=== PATIENT | female | born 1995 | race Two or more races ===

== ENCOUNTER 2024-11-06 21:13 | Emergency (ER) | payer BC, SELFPAY ==
[2024-11-06] VITALS (8 sets, daily range): BP systolic 123–142; BP diastolic 76–85; PULSE 129–147; RESP 19–32; TEMP 37.1–37.2; O2SAT 99; BMI 25.6
--- NOTE | 2024-11-06 21:27 | PD.EDCHEST ---
ED Chest Pain RME/HPI General Chief Complaint: Chest Pain Stated Complaint: CHEST PAIN Time Seen by Provider: 11/06/24 21:28 Arrival date/time: 11/06/24 21:13 RME / HPI RME / HPI narrative: See [facility] for Dr. Kyle's HPI documentation. Related Data Previous Rx's ?Medication ?Instructions ?Recorded azithromycin 500 mg tablet 500 mg PO QDAY 3 days #3 tabs 11/07/24 (Zithromax TRI-THOM) magnesium oxide 400 mg PO BID #60 tabs 11/07/24 metoprolol succinate 50 mg 50 mg PO BID #60 tabs 11/07/24 tablet,extended release 24 hr Allergies Allergy/AdvReac Type Severity Reaction Status Date / Time tramadol Allergy Verified 11/07/24 01:39 Review of Systems Review of Systems Systems Reviewed: All systems reviewed, normal except as documented Past Medical History Social History SMOKING STATUS: Never smoker ED Exam Narrative Physical exam: See [facility] for Dr. Kyle's physical exam documentation. Course Course Course Narrative: CXR is ordered for determining the etiology of chest pain. Quality Measures none Orders Category Date Time Status Bedside COVID-19 Antigen Test NOW Care 11/06/24 21:29 Completed Bedside Influenza A&B Antigen Test NOW Care 11/06/24 21:29 Completed EKG (ED ONLY) *Do not use* NOW Care 11/06/24 21:23 Completed Saline [Insert IV] NOW Care 11/06/24 21:29 Completed Straight [In and Out Catheter] X1 Care 11/06/24 21:29 Completed EKG (ED Only) Stat Exams 11/06/24 21:23 Ordered XR chest 1V portable Stat Exams 11/06/24 21:30 Completed Alcohol, Blood Medical Stat Lab 11/06/24 21:37 Completed Amylase Stat Lab 11/06/24 21:37 Completed BNP [B-Type Natriuretic Peptide] Stat Lab 11/06/24 21:37 Completed Bilirubin,Direct Stat Lab 11/06/24 21:37 Completed CBC Stat Lab 11/06/24 21:37 Completed CMP [Comprehensive Metabolic Panel] Stat Lab 11/06/24 21:37 Completed D-Dimer Stat Lab 11/06/24 21:37 Completed Drug Screen,Urine Stat Lab 11/06/24 22:24 Completed HCG,Qualitative Serum Stat Lab 11/06/24 21:37 Completed Lipase Stat Lab 11/06/24 21:37 Completed Magnesium Stat Lab 11/06/24 21:37 Completed PT [Prothrombin Time with INR] Stat Lab 11/06/24 21:37 Completed PTT [Partial Thromboplastin Time] Stat Lab 11/06/24 21:37 Completed TSH [Thyroid Stimulating Hormone] Stat Lab 11/06/24 21:37 Completed Troponin I Stat Lab 11/06/24 21:37 Completed UA, C/S IF [Urinalysis, C/S if Indicated] Stat Lab 11/06/24 22:24 Completed ALPRazoLAM [Xanax] Med 11/07/24 02:37 Discontinued 1 mg PO X1 ONE Azithromycin Po [Zithromax PO] Med 11/07/24 01:38 Discontinued 500 mg PO X1 ONE Diazepam Inj [Valium Inj] Med 11/06/24 21:29 Discontinued 10 mg IVP X1 ONE Diazepam Inj [Valium Inj] Med 11/06/24 23:28 Discontinued 10 mg IVP X1 ONE KCL 10% Liq UDC 15 ML Med 11/06/24 23:54 Discontinued 40 meq PO X1 ONE KCL 10% Liq UDC 15 ML Med 11/06/24 23:56 Discontinued 40 meq PO X1 ONE Magnesium Sulfate 2 GM Ivpb [Magnesium Sulfate Ivpb] Med 11/06/24 23:57 Discontinued 2 gm in 50 ml IV X1 Metoprolol Tartrate Inj [Lopressor Inj] Med 11/06/24 21:29 Discontinued 5 mg IVP X1 ONE Metoprolol Tartrate Inj [Lopressor Inj] Med 11/06/24 23:28 Discontinued 5 mg IVP X1 ONE Metoprolol Tartrate [Lopressor] Med 11/07/24 01:33 Discontinued 50 mg PO X1 ONE Ondansetron Inj [Zofran Inj] Med 11/06/24 21:29 Discontinued 4 mg IVP X1 ONE Potassium Chloride [K-Dur] Med 11/07/24 00:31 Discontinued 40 meq PO X1 ONE Potassium Chloride [K-Dur] Med 11/07/24 00:38 Discontinued 40 meq PO X1 ONE Sodium Chloride 0.9% 1000 ml [Ns] 1,000 ml Med 11/06/24 21:29 Discontinued IV 999 mls/hr Sodium Chloride 0.9% 1000 ml [Ns] 1,000 ml Med 11/06/24 21:30 Discontinued IV 999 mls/hr Sodium Chloride 0.9% 1000 ml [Ns] 1,000 ml Med 11/06/24 23:28 Discontinued IV 999 mls/hr Thiamine Inj [Vitamin B-1 Inj] Med 11/06/24 21:29 Discontinued 100 mg IVP X1 ONE Vital Signs Vital signs: Vital Signs Temperature 99.0 F 11/06/24 21:29 Pulse Rate 147 H 11/06/24 21:29 Respiratory Rate 22 H 11/06/24 21:29 Blood Pressure 133/76 H 11/06/24 21:29 Pulse Oximetry (%) 99 11/06/24 21:29 Oxygen Delivery Method Room Air 11/06/24 21:29 Chest Pain MDM Narrative MDM Narrative:: This section includes all my notes and documentations, including HPI, PE, and ED course. Alek Kyle MD HPI: 29yo female BIBA from home here with chest pain. Patient was eating dinner when she started having chest pain, palpitations, and felt hot. She did have a marijuana edible and drank beer prior to having dinner. No abdominal pain. EMS administered 2 shocks (100 and 150 joules) and 3 rounds of Adenosine en route (6mg, 12mg, 12mg). Patient takes [place] daily. She also reports binging on alcohol, 2-3 days per week. And she had 3 energy drinks [employer]. No other complaints reported. ROS: All negative except as documented in HPI. Physical Exam: General: Alert and oriented. Appears severely anxious. Eyes: Conjunctivae and lids clear. PERRL. EOMI. ENT: No nasal congestion. Neck: Supple. Heart: Tachycardic, regular rhythm. Lungs: No respiratory distress. Good air movement. No rhonchi, wheezing, rales. Abdomen: Soft and nontender. Normal bowel sounds. No distension. No rebound or guarding. Back: No CVA tenderness. Skin: Warm and dry. Neuro: Alert and oriented X 3. CN 2-12 grossly normal. No peripheral motor deficits. I reviewed EMS notes. I reviewed all diagnostic test results. My interpretation of the EKG is sinus tachycardia with nonspecific ST-T changes. My interpretation of the chest x-ray is infiltrates. Blood tests are remarkable for K 3.0, Mg 1.5. UA unremarkable. UDS positive for marijuana and opiates. At this point, diagnoses include: Tachycardia Hypertension Alcohol use Hypokalemia Hypomagnesemia Pneumonia Treatment here included: Valium IV fluid Metoprolol Zofran Thiamine Oral KCl Magnesium Azithromycin Significant improvement noted. Recommended outpatient management. Based on my best medical judgment, made decision no further evaluation or treatment indicated at this time. Patient understands and agrees to the discharge instructions customized and printed, see below. Discharge instructions from Dr. Kyle: 1. After extensive evaluation, there is no life-threatening condition. Such as heart attack or pulmonary embolism (blood clots in your lungs) or pneumothorax (collapsed lung). 2. Your symptoms were due to a combination of 3 energy drinks, alcohol, marijuana use, low potassium, low magnesium, mild pneumonia, and underlying high BP and fast heart rate. 3. Take metoprolol as prescribed. You will live longer with lower BP and slower heart rate. 4. Take Zithromax for your very mild pneumonia. 5. For low magnesium, take magnesium pills as prescribed and increase food rich in magnesium. Such as green and leafy vegetables and almonds and cashews and peanuts. 6. For low potassium, increased food rich in potassium, including banana daily. See attached handout about potassium rich food. 7. Avoid energy drinks and alcohol and marijuana. 8.. See a private doctor on 11/10/2024 for recheck and further care. Ask to review all test results and official radiology reports, to make sure you receive all necessary follow-ups and monitoring, including repeat potassium and magnesium levels. To make sure there is no serious underlying heart condition, ask to help you get more tests for your heart that cannot be done here in the ER. Such as Holter Monitor (cardiac monitoring at home from a day to even a month), heart stress test (on treadmill or with medication), echocardiogram (imaging of your heart structures), heart catherization (checking for blockages in your heart arteries), and a referral to see a Ethylbenzene Cracking Supervisor. Ask for help quitting energy drinks and marijuana and alcohol. Ask for help until you are completely better. 9. Seek immediate medical care with worsening or with any concerns. Alek Kyle MD Patient data External records reviewed:: [facility] previous records (Per chart review, patient has no previous ED visits or admissions to this facility.) and EMS form Clinical information provided by:: patient and EMS Social determinants that could affect healthcare access:: substance use (marijuana and alcohol use) Patient has the following chronic illnesses:: none How is presenting disease/condition affected by chronic disease/condition?: no chronic disease Evaluation data The following diagnostics were reviewed and interpreted by me:: lab results, radiology exam(s) and EKG tracing(s) (My interpretation of the EKG is: Sinus tachycardia (149 bpm) with nonspecific ST-T changes. Alek Kyle MD) Lab and/or radiology exams considered but not ordered:: none Interpretation Summary: I reviewed all diagnostic test results. My interpretation of the EKG is sinus tachycardia with nonspecific ST-T changes. My interpretation of the chest x-ray is infiltrates. Blood tests are remarkable for K 3.0, Mg 1.5. UA unremarkable. UDS positive for marijuana and opiates. Medications / Prescriptions Medications or Prescriptions considered but not ordered:: none Medication administrations:: Medication Administration History Discontinued Medications Alprazolam (Alprazolam 0.25 Mg Tablet) 1 mg PO X1 ONE Stop: 11/07/24 02:38 Last Admin: 11/07/24 02:56 Dose: 1 mg Documented By: RANGEL Azithromycin (Azithromycin 250 Mg Tablet) 500 mg PO X1 ONE Stop: 11/07/24 01:39 Last Admin: 11/07/24 02:33 Dose: 500 mg Documented By: RANGEL Diazepam (Diazepam Inj 5 Mg/Ml Vial 2 Ml) 10 mg IVP X1 ONE Stop: 11/06/24 21:30 Last Admin: 11/06/24 21:55 Dose: 10 mg Documented By: KIN Diazepam (Diazepam Inj 5 Mg/Ml Vial 2 Ml) 10 mg IVP X1 ONE Stop: 11/06/24 23:29 Last Admin: 11/06/24 23:41 Dose: 10 mg Documented By: RANGEL Sodium Chloride (Ns) 1,000 mls @ 999 mls/hr IV .Q1H1M ONE Stop: 11/06/24 22:29 Last Infusion: 11/06/24 23:08 Dose: Infused Documented By: Admin: 11/06/24 21:52 Dose: 999 mls/hr Documented By: KIN Sodium Chloride (Ns) 1,000 mls @ 999 mls/hr IV .Q1H1M ONE Stop: 11/06/24 22:30 Last Infusion: 11/06/24 23:08 Dose: Infused Documented By: Admin: 11/06/24 22:05 Dose: 999 mls/hr Documented By: RANGEL Sodium Chloride (Ns) 1,000 mls @ 999 mls/hr IV .Q1H1M ONE Stop: 11/07/24 00:28 Last Infusion: 11/07/24 00:40 Dose: Infused Documented By: Admin: 11/06/24 23:42 Dose: 999 mls/hr Documented By: RANGEL Magnesium Sulfate (Magnesium Sulfate Ivpb) 2 gm in 50 mls @ 25 mls/hr IV X1 ONE Stop: 11/07/24 01:56 Last Infusion: 11/07/24 03:07 Dose: Infused Documented By: Admin: 11/07/24 00:34 Dose: 25 mls/hr Documented By: KIN Metoprolol Tartrate (Metoprolol Tartrate Inj 1 Mg/Ml Amp 5 Ml) 5 mg IVP X1 ONE Stop: 11/06/24 21:30 Last Admin: 11/06/24 21:53 Dose: 5 mg Documented By: KIN Metoprolol Tartrate (Metoprolol Tartrate Inj 1 Mg/Ml Amp 5 Ml) 5 mg IVP X1 ONE Stop: 11/06/24 23:29 Last Admin: 11/06/24 23:41 Dose: 5 mg Documented By: RANGEL Metoprolol Tartrate (Metoprolol Tartrate 25 Mg Tablet) 50 mg PO X1 ONE Stop: 11/07/24 01:34 Last Admin: 11/07/24 01:38 Dose: 50 mg Documented By: KIN Ondansetron HCl (Ondansetron Inj 2 Mg/Ml Inj 2 Ml) 4 mg IVP X1 ONE; Protocol Stop: 11/06/24 21:30 Last Admin: 11/06/24 21:54 Dose: 4 mg Documented By: KIN Potassium Chloride (Potassium Chloride 10% 20 Meq/15 Ml Udc) 40 meq PO X1 ONE Stop: 11/06/24 23:55 Last Admin: 11/07/24 00:32 Dose: Not Given Documented By: KIN Non-Admin Reason: Cancelled by Provider Potassium Chloride (Potassium Chloride 10% 20 Meq/15 Ml Udc) 40 meq PO X1 ONE Stop: 11/06/24 23:57 Last Admin: 11/07/24 00:50 Dose: Not Given Documented By: KIN Non-Admin Reason: Cancelled by Provider Potassium Chloride (Potassium Chloride 20 Meq Tabcr) 40 meq PO X1 ONE Stop: 11/07/24 00:32 Last Admin: 11/07/24 00:44 Dose: 40 meq Documented By: KIN Potassium Chloride (Potassium Chloride 20 Meq Tabcr) 40 meq PO X1 ONE Stop: 11/07/24 00:39 Last Admin: 11/07/24 00:45 Dose: 40 meq Documented By: KIN Thiamine HCl (Thiamine Inj 100 Mg/Ml Vial 2 Ml) 100 mg IVP X1 ONE Stop: 11/06/24 21:30 Last Admin: 11/06/24 21:54 Dose: 100 mg Documented By: KIN Valium, IV fluid, Metoprolol, Zofran, Thiamine, Oral KCl, Magnesium, Azithromycin Consultations Consultation(s) initiated? (list below): No Diagnosis Chest Pain Differential Diagnosis: pneumothorax, stable angina, unstable angina pectoris, atypical chest pain, st elevation myocardial infarction and costochondritis Most likely diagnosis given after review of the tests above:: Tachycardia, Hypertension, Alcohol use, Hypokalemia, Hypomagnesemia, Pneumonia Admission Indicated Admission indicated?: not indicated Explain why admission is indicated or not indicated:: With significant improvement and no condition needing emergent intervention, there was no indication for admission. Admission Request Was there a request for admission?: No Disposition Plan Disposition Plan: Discharge Discharge Attestation Discharge Attestation: The patient and all family members were given an opportunity to ask questions and understood the discharge instructions. Discharge instructions specifically effects, indications for sooner follow up or return to the emergency department, and the expected course of current diagnosis. Patient condition: Stable Discharge Plan Plan Patient Disposition: HOME (Self Care) Prescriptions/Referrals Prescriptions/Med Rec: New metoprolol succinate 50 mg tablet extended release 24 hr 50 mg PO BID Qty: 60 0RF magnesium oxide 400 mg magnesium tablet 400 mg PO BID Qty: 60 0RF azithromycin [Zithromax TRI-THOM] 500 mg tablet 500 mg PO QDAY 3 Days Qty: 3 0RF Referrals: Abelardo Mobley MD [Primary Care Provider, Family Practice] - In 1 week Problem List Clinical Impression: Tachycardia, Hypertension, Alcohol use, Hypokalemia, Hypomagnesemia, Pneumonia Patient/Caregiver Discharge Instructions Discharge Activity: activity as tolerated Education Materials: Magnesium (Blood), ED Hypertension, New (Begin Treatment), ED Hypokalemia, ED Palpitations, ED Pneumonia (Adult), ED Potassium-Rich Foods, ED Alcohol Abuse Additional Instructions: Discharge instructions from Dr. Kyle: 1. After extensive evaluation, there is no life-threatening condition.? Such as heart attack or pulmonary embolism (blood clots in your lungs) or pneumothorax (collapsed lung). 2. Your symptoms were due to a combination of 3 energy drinks, alcohol, marijuana use, low potassium, low magnesium, mild pneumonia, and underlying high BP and fast heart rate. 3. Take metoprolol as prescribed. You will live longer with lower BP and slower heart rate. 4. Take Zithromax for your very mild pneumonia. 5. For low magnesium, take magnesium pills as prescribed and increase food rich in magnesium. Such as green and leafy vegetables and almonds and cashews and peanuts. 6. For low potassium, increased food rich in potassium, including banana daily. See attached handout about potassium rich food. 7. Avoid energy drinks and alcohol and marijuana. 8.. See a private doctor on 11/10/2024 for recheck and further care. Ask to review all test results and official radiology reports, to make sure you receive all necessary follow-ups and monitoring, including repeat potassium and magnesium levels. To make sure there is no serious underlying heart condition, ask to help you get more tests for your heart that cannot be done here in the ER.? Such as Holter Monitor (cardiac monitoring at home from a day to even a month), heart stress test (on treadmill or with medication), echocardiogram (imaging of your heart structures), heart catherization (checking for blockages in your heart arteries), and a referral to see a Ethylbenzene Cracking Supervisor. Ask for help quitting energy drinks and marijuana and alcohol. Ask for help until you are completely better. 9. Seek immediate medical care with worsening or with any concerns.?? Print Language: Cambodian Stand Alone Forms: [employer] Award Info., Work/School Release, Patient Portal Info Letter
--- NOTE | 2024-11-06 21:30 | XR_ITS ---
Examination: AP chest single view Technique one AP portable upright chest single view Date and time: November 06, 2024 2153 hrs. Indications: Shortness of breath today. Findings: Early pneumonia left base obscuring detail left hemidiaphragm Normal heart size Right lung clear Osseous structures are intact Impression: Early pneumonia left base
[2024-11-06] MEDS: SODIUM CHLORIDE 0.9% 1000 ML 1,000 ML 999 ML IV ×3 (21:52→23:42)
[2024-11-06] MEDS: METOPROLOL TARTRATE INJ 1 MG/ML AMP 5 ML 5 MG IVP ×2 (21:53→23:41)
[2024-11-06] MEDS: THIAMINE INJ 100 MG/ML VIAL 2 ML IVP (21:54)
[2024-11-06] MEDS: ONDANSETRON INJ 2 MG/ML INJ 2 ML 4 MG IVP (21:54)
[2024-11-06] MEDS: DIAZEPAM INJ 5 MG/ML VIAL 2 ML 10 MG IVP ×2 (21:55→23:41)
[2024-11-06 22:01] LABS: Basophils # (Auto) 0.0 Thou/mm3 (0.0-0.2); Basophils % (Auto) 0 % (0-2.5); Eosinophils # (Auto) 0.4 Thou/mm3 (0.0-0.5); Eosinophils % (Auto) 4 % (0-10); Hematocrit 39.3 % (36.0-46.0); Hemoglobin 14.1 g/dL (12.0-16.0); Immature Granulocytes Auto 0.03 Thou/mm3 (0.00-0.00); Lymphocytes # (Auto) 4.2 Thou/mm3 (1.0-4.8); Lymphocytes % (Auto) 42 % (10-50); Mean Corpuscular HGB Conc 35.9 g/dl (31.0-37.0); Mean Corpuscular Hemoglobin 31.5 pg (25.0-35.0); Mean Corpuscular Volume 88 fL (80-100); Monocytes # (Auto) 0.8 Thou/mm3 (0.0-0.8); Monocytes % (Auto) 8 % (0-12); Neutrophils # (Auto) 4.5 Thou/mm3 (1.8-7.7); Neutrophils % (Auto) 45 % (37-80); Nucleated Red Blood Cell # 0.00 Thou/mm3 (0.00-0.00); Nucleated Red Blood Cell % 0 /100 WBC (0); Platelet Count 300 Thou/mm3 (140-440); RDW Standard Deviation 43.8 fL (36.4-46.3); Red Blood Count 4.47 Miln/mm3 (4.00-5.20); White Blood Count 9.9 Thou/mm3 (3.6-11.0)
[2024-11-06 22:16] LABS: HCG,Qualitative Serum Negative
[2024-11-06 22:25] LABS: INR 1.0 (0.9-1.3); Partial Thromboplastin Time 25.6 Seconds (22.0-36.0); Prothrombin Time 10.8 Seconds (9.0-12.2)
[2024-11-06 22:29] LABS: D-Dimer < 250 ng/mL (<600)
[2024-11-06 22:33] LABS: B-Type Natriuretic Peptide < 20 pg/mL (0-100)
[2024-11-06 22:44] LABS: Collection Type, Urine Clean Catch
[2024-11-06 22:56] LABS: Bacteria,Urine Rare; Bilirubin,Urine Negative (Negative); Blood,Urine Negative (Negative); Clarity,Urine Clear (Clear/Hazy); Color,Urine Colorless (Lt Yel-Yel); Culture Indicated,Urine Not Indicated; Glucose, Urine Negative (Negative); Ketones,Urine Negative (Negative); Leukocyte Esterase,Urine Positive (Negative); Nitrite,Urine Negative (Negative); PH,Urine 6.5 (5.0-7.0); Protein,Urine Negative (Neg - Trace); RBC,Urine < 1 /hpf (0-3); Specific Gravity,Urine 1.006 (1.001-1.035); Squamous Epithelial Cell,Urine 1 /hpf (0-5); Urobilinogen,Urine Negative mg/dL (0.0-1.0); WBC,Urine 3 /hpf (0-5)
[2024-11-06 23:09] LABS: Amphetamine/Methamp Scrn,U Negative (Negative); Barbiturate Screen,Urine Negative (Negative); Benzodiazepines Screen,Urine Positive (Negative); Benzoylecgonine Screen, Ur Negative (Negative); Fentanyl Screen,Urine Negative (Negative); Opiate Screen,Urine Positive (Negative); THC Screen,Urine Positive (Negative)
[2024-11-06 23:32] LABS: Alanine Aminotransferase 12 U/L (10-49); Albumin, Serum 4.7 gm/dL (3.5-5.0); Albumin/Globulin Ratio 1.6 (1.2-2.2); Alcohol, Blood Medical < 3.0 mg/dL (0-10.0); Alkaline Phosphatase 98 U/L (46-116); Anion Gap 17 (7-16); Aspartate Amino Transferase 27 U/L (0-34); BUN/Creatinine Ratio 7 Ratio (12-20); Bilirubin,Direct 0.1 mg/dL (0.0-0.3); Bilirubin,Total 0.4 mg/dL (0.3-1.2); Blood Urea Nitrogen < 5 mg/dL (9-23); Calcium 9.9 mg/dL (8.3-10.6); Calcium (Corrected) 9.9 mg/dL (8.5-10.1); Carbon Dioxide 20.3 mMol/L (20.0-31.0); Chloride 104 mMol/L (98-107); Creatinine (Component) 0.7 mg/dL (0.6-1.3); Estimated Creatinine Clearance 92.5 mL/min (>60); Globulin 3.0 gm/dL (2.3-3.5); Glucose 174 mg/dL (74-106); Magnesium 1.5 mg/dL (1.6-2.6); Osmolality,Calculated 282 (275-295); Potassium 3.0 mMol/L (3.4-5.1); Sodium 141 mMol/L (136-145); Thyroid Stimulating Hormone 1.36 uIU/mL (0.55-4.78); Total Protein 7.7 gm/dL (5.7-8.2); Troponin I < 0.020 ng/mL (0.0-0.045); eGFR > 60 See Note
[2024-11-06 23:44] LABS: Amylase 44 U/L (30-118); Lipase 34 U/L (12-53)
[2024-11-07] VITALS (7 sets, daily range): BP systolic 117–128; BP diastolic 66–81; PULSE 99–128; RESP 18–28; TEMP 36.6–37.1; O2SAT 95–99
[2024-11-07] MEDS: Magnesium Sulfate 2 GM Ivpb 2 GM/50 ML BAG IV (00:34)
[2024-11-07] MEDS: METOPROLOL TARTRATE 25 MG TABLET 50 MG PO (01:38)
[2024-11-07] MEDS: AZITHROMYCIN 250 MG TABLET 500 MG PO (02:33)
== END 2024-11-07 03:49 | disposition home or self-care (01) ==
PROVIDERS: Emergency Provider Emergency Medicine; PCP Family Medicine
DX: R00.0 Tachycardia, unspecified (principal); I10 Essential (primary) hypertension; E87.6 Hypokalemia; E83.42 Hypomagnesemia; J18.9 Pneumonia, unspecified organism; F10.90 Alcohol use, unspecified, uncomplicated
CPT/HCPCS: 36415; 71045; 80053; 80307; 80320; 81001; 82150; 82248; 83690; 83735; 83880; 84443; 84484; 84703; 85025; 85379; 85610; 85730; 87400; 87811; 93005; 96361; 96365; 96366; 96375; 96376; 99284; J2405; J3360; J3411; J3475; J3490; J7030; A9270; G0480